=== PATIENT | female | born 1950 | race Caucasian/White ===

== ENCOUNTER 2019-06-04 15:49 | Observation (INO) | payer MEDICARE ==
[~2019-06-04] VITALS: Ht 154.9 cm; Wt 66.0 kg
[~2019-06-04 15:49] MED LIST: AMBIEN10 MG PO; ASPIRIN LOW DOS81 M2 PO; CLONAZEPAM0.5 MG PO; FLEXERIL OR; FLEXERIL5 M1 PO; GABAPENTIN300 MG PO; MEDDOSEPAK OR; NEURONTIN100 MG PO; NEURONTIN300 MG PO; NORVASC PO; NORVASC10 M1 PO; SYNTHROID PO; SYNTHROID112 MCG PO; ULTRAM50 M1 PO; WELLBUTRIN100 M2 PO; WELLBUTRIN150 M2 PO; ZANAFLEX6 MG PO
[2019-06-04 16:47] LABS: HEMATOCRIT 37.5 % (37.0-47.0); HEMOGLOBIN 12.6 g/dl (12.0-16.0); IMMATURE GRANULOCYTES 0.5 % (0.0-5.0); MEAN CORPUSCULAR HGB 29.6 pG CALC (26.0-32.0); MEAN CORPUSCULAR HGB CONC 33.6 g/L CALC (32.0-36.0); NEUT# 3.92 thou/uL (2.00-7.15); RED BLOOD COUNT 4.26 mill/uL (4.20-5.60); RED CELL DISTRI WIDTH 12.6 % (11.5-15.5)
[2019-06-04] MEDS ORDERED: SYNTHROID88 MCG PO (16:59)
[2019-06-04] MEDS ORDERED: LOSARTAN POT50 MG PO (17:01)
[2019-06-04] MEDS ORDERED: ATORVASTATIN CA10 MG PO (17:01)
[2019-06-04] MEDS ORDERED: WELLBUTRIN SR150 MG PO (17:02)
[2019-06-04] MEDS ORDERED: TRAZODONE50 MG PO (17:03)
[2019-06-04 17:04] LABS: URINE BILIRUBIN - DIPSTICK NEGATIVE (NEGATIVE); URINE BLOOD DIPSTICK NEGATIVE (NEGATIVE); URINE COLOR YELLOW; URINE GLUCOSE - DIPSTICK NEGATIVE (NEGATIVE); URINE KETONE NEGATIVE (NEGATIVE); URINE LEUK ESTERASE NEGATIVE (NEGATIVE); URINE NITRITE - DIPSTICK NEGATIVE (Negative); URINE PROTEIN - DIPSTICK TRACE mg/dL (NEG-TRACE); URINE SPECIFIC GRAVITY >=1.030; URINE UROBILINOGEN - DIPSTICK 0.2 E.U./dL (0.2)
[2019-06-04 17:06] LABS: ALKALINE PHOSPHATASE 80 u/l (38-126); BUN 16 mg/dL (8-23); BUN/CREATININE RATIO 18 (12-20 (CALC)); CARBON DIOXIDE 30 mmol/l (22-30); CHLORIDE 104 mmol/l (95-108); CREATININE 0.9 mg/dL (0.5-1.0); GFR > 60 ML/MIN (>=60 (CALC)); GFR FOR AFR.AMER. > 60 ML/MIN (>=60 (CALC)); LIPASE 49 u/l (23-300); SODIUM 140 mmol/l (137-146); TOTAL PROTEIN 6.9 g/dL (6.3-8.2)
[2019-06-04 17:09] LABS: ANION GAP 10 (6-22 (CALC)); BILIRUBIN, TOTAL 0.6 mg/dL (0.0-1.4); POTASSIUM 3.7 mmol/l (3.5-5.1); SGOT/AST 44 u/l (9-36)
[2019-06-04 18:35] VITALS: BP 150/86
[2019-06-05 00:04] VITALS: BP 95/42
[2019-06-05 01:03] VITALS: BP 102/60
[2019-06-05 04:10] VITALS: BP 100/68
[2019-06-05 04:52] LABS: HEMATOCRIT 34.1 % (37.0-47.0); HEMOGLOBIN 11.7 g/dl (12.0-16.0); IMMATURE GRANULOCYTES 0.2 % (0.0-5.0); MEAN CELL VOLUME 87.4 fL CALC (80.0-100.0); MEAN CORPUSCULAR HGB CONC 34.3 g/L CALC (32.0-36.0); NEUT# 2.06 thou/uL (2.00-7.15); RED BLOOD COUNT 3.9 mill/uL (4.20-5.60); RED CELL DISTRI WIDTH 12.5 % (11.5-15.5)
[2019-06-05 05:04] LABS: ANION GAP 10 (6-22 (CALC)); BUN 12 mg/dL (8-23); BUN/CREATININE RATIO 14 (12-20 (CALC)); CARBON DIOXIDE 30 mmol/l (22-30); CHLORIDE 106 mmol/l (95-108); CREATININE 0.8 mg/dL (0.5-1.0); GFR > 60 ML/MIN (>=60 (CALC)); GFR FOR AFR.AMER. > 60 ML/MIN (>=60 (CALC)); SODIUM 142 mmol/l (137-146)
[2019-06-05 07:53] VITALS: BP 121/68
[2019-06-05 11:00] VITALS: BP 116/68
[2019-06-05] MEDS ORDERED: PROTONIX40 M2 PO (11:49)
== END 2019-06-05 12:44 | disposition home or self-care (01) ==
LOC: ED 15:49 → ED-I 17:44 → ED 18:11 → MS2 18:12
PROVIDERS: Emergency Medicine; ADMIT Internal Medicine; ATTEND Internal Medicine
DX: R07.89 Other chest pain (principal); K21.9 Gastro-esophageal reflux disease without esophagitis; I10 Essential (primary) hypertension; E78.5 Hyperlipidemia, unspecified; E89.0 Postprocedural hypothyroidism; Z85.850 Personal history of malignant neoplasm of thyroid

== ENCOUNTER 2019-11-22 | Emergency (ER) | payer MEDICARE ==
[~2019-11-22] MED LIST changes: +ATORVASTATIN CA10 MG PO; +LOSARTAN POT50 MG PO; +PROTONIX40 M2 PO; +SYNTHROID88 MCG PO; +TRAZODONE50 MG PO; +WELLBUTRIN SR150 MG PO
[2019-11-22] MEDS ORDERED: LEVOTHYROXINE75 MCG PO (21:14)
[2019-11-22] MEDS ORDERED: TRAMADOL HCL50 MG PO (21:56)
== END 2019-11-22 21:57 | disposition home or self-care (01) ==
DX: S83.92XA Sprain of unspecified site of left knee, initial encounter (principal); N18.3 Chronic kidney disease, stage 3 (moderate); W01.0XXA Fall on same level from slipping, tripping and stumbling without subsequent striking against object, initial encounter; Y92.89 Other specified places as the place of occurrence of the external cause

== ENCOUNTER 2021-05-13 18:54 | Emergency (ER) | payer MEDICARE ==
[~2021-05-13] VITALS: Ht 154.9 cm; Wt 61.0 kg
[~2021-05-13 18:54] MED LIST changes: +LEVOTHYROXINE75 MCG PO; +TRAMADOL HCL50 MG PO
[2021-05-13] MEDS ORDERED: NORVASC2.5 M1 PO (19:22)
[2021-05-13] MEDS ORDERED: PERCOCET 5/325M1 TAB PO (20:29)
[2021-05-13 21:45] VITALS: BP 145/66
== END 2021-05-13 21:50 | disposition home or self-care (01) ==
LOC: ED 18:54
DX: S93.402A Sprain of unspecified ligament of left ankle, initial encounter (principal); S93.601A Unspecified sprain of right foot, initial encounter; N18.30 Chronic kidney disease, stage 3 unspecified; K21.9 Gastro-esophageal reflux disease without esophagitis; X50.1XXA Overexertion from prolonged static or awkward postures, initial encounter; Y92.009 Unspecified place in unspecified non-institutional (private) residence as the place of occurrence of the external cause; Z98.84 Bariatric surgery status

== ENCOUNTER 2022-03-31 12:41 | Emergency (ER) | payer MEDICARE ==
[~2022-03-31] VITALS: Ht 154.9 cm; Wt 68.0 kg
[~2022-03-31 12:41] MED LIST changes: +NORVASC2.5 M1 PO; +PERCOCET 5/325M1 TAB PO
[2022-03-31 13:38] VITALS: BP 150/86
[2022-03-31 14:06] VITALS: BP 164/85
[2022-03-31 14:31] VITALS: BP 135/72
[2022-03-31] MEDS ORDERED: HYDROCODONE BIT1 TA7 PO (15:09)
[2022-03-31 15:21] VITALS: BP 135/72
== END 2022-03-31 15:45 | disposition home or self-care (01) ==
LOC: ED 12:41
DX: S83.92XA Sprain of unspecified site of left knee, initial encounter (principal); S43.402A Unspecified sprain of left shoulder joint, initial encounter; S60.512A Abrasion of left hand, initial encounter; S60.511A Abrasion of right hand, initial encounter; S80.212A Abrasion, left knee, initial encounter; N18.30 Chronic kidney disease, stage 3 unspecified; K21.9 Gastro-esophageal reflux disease without esophagitis; W01.0XXA Fall on same level from slipping, tripping and stumbling without subsequent striking against object, initial encounter; Y92.242 Post office as the place of occurrence of the external cause; Z98.84 Bariatric surgery status